=== PATIENT | female | born 1940 | race Caucasian/White ===

== ENCOUNTER 2019-03-03 10:28 | Observation (INO) | payer MEDICARE ==
[~2019-03-03] VITALS: Ht 170.2 cm; Wt 69.9 kg
[2019-03-03] MEDS ORDERED: ASPIRIN 81 MG CHEW TAB PO STA (10:47)
--- NOTE | 2019-03-03 11:55 | Diagnostic Imaging Report ---
Chest, 1 view, 03/03/2019. History: Chest tightness. Comparison: None available. Findings: The cardiomediastinal silhouette and pulmonary vasculature are within normal limits for a portable exam. There is minimal biapical pleural thickening. There is no focal consolidation or pleural effusion. There are no acute osseous or soft tissue abnormalities. Impression: No acute cardiopulmonary abnormality. Signed by: Micah Ozuna on 03/03/2019 11:52 AM
[2019-03-03 12:36] LABS: BILIRUBIN,URINE NEGATIVE (NEGATIVE); CLARITY,URINE CLEAR (CLEAR); COLOR,URINE YELLOW (YELLOW); KETONES,URINE NEGATIVE (NEGATIVE); LEUKOCYTE ESTERASE ,URINE MODERATE (NEGATIVE); NITRITE,URINE NEGATIVE (NEGATIVE); PROTEIN,URINE DIPSTICK 1+ (NEGATIVE); URINE UROBILINOGEN 0.2 mg/dL (0.2 - 1)
[2019-03-03 12:41] LABS: BASOPHILS % 0.3 % (0.0-1.0); EOSINOPHILS % 0.1 % (0.0-6.0); HEMATOCRIT 37.5 % (34.2-44.1); HEMOGLOBIN 12.2 g/dL (12.0-16.0); LYMPHOCYTES # (AUTO) 1.1 (1.0-3.2); LYMPHOCYTES % 6.8 % (18.0-39.1); MEAN CORPUSCULAR HEMOGLOBIN 29.7 pg (28-32); MEAN CORPUSCULAR HGB CONC 32.5 g/dL (31-35); MEAN CORPUSCULAR VOLUME 91.2 fL (81-99); MONOCYTES # (AUTO) 1.6 (0.2-0.8); MONOCYTES % 9.9 % (4.4-11.3); NEUTROPHILS # (AUTO) 13.2 (2.1-6.9); NEUTROPHILS % 82.1 % (38.7-80.0); PLATELET COUNT 278 x10e3/uL (140-360); RED BLOOD COUNT 4.11 x10e6/uL (3.6-5.1); RED CELL DISTRIBUTION WIDTH 15.1 % (11.7-14.4)
[2019-03-03 12:49] LABS: BACTERIA,URINE FEW /HPF; EPITHELIAL CELLS,URINE FEW /LPF
[2019-03-03 12:57] LABS: ALBUMIN 3.5 g/dL (3.5-5.0); ALBUMIN/GLOBULIN RATIO 0.9 (0.8-2.0); ANION GAP 12.5 mmol/L (8-16); CALCIUM 10.2 mg/dL (8.4-10.2); CREATININE, SERUM 0.95 mg/dL (0.57-1.11); POTASSIUM 3.5 mmol/L (3.5-5.1)
[2019-03-03 13:06] LABS: CREATINE KINASE MB 0.9 ng/mL (0-5.0)
[2019-03-03] MEDS ORDERED: CEFTRIAXONE SOD 1 GM VIAL IV ONE (13:30)
[2019-03-03 13:31] LABS: AMYLASE 33 U/L (25-125); LIPASE 4 U/L (8-78)
[2019-03-03] MEDS ORDERED: CEFTRIAXONE SOD 1 GM/NS 50 ML 50 ML IV ONE (13:45)
--- OUTSIDE RECORDS SUMMARY | 2019-03-03 14:06 | XMS REPORT ---
Author Author [facility] Address Unknown Phone Unavailable Care Team Providers Care Corn Cutter Name Role Phone BEN GOODE Unavailable Unavailable DIOGENES RODRIGEZ Unavailable Unavailable AZUL MONDRAGON Unavailable Unavailable Problems This patient has no known problems. Allergies, Adverse Reactions, Alerts This patient has no known allergies or adverse reactions. Medications This patient has no known medications. Results Test Description Test Time Test Comments Text Results Atomic Results Result Comments CHEST SINGLE (NOT PORTABLE) 2019-03-03 11:52:00 [place] [address] Patient Name: CINDY BASS MR #: [id number] : 1940 Age/Sex: 78/F Req #: [id number] Adm Physician: Ordered by: BEN GOODE DO Report #: [id number] Location: ER Room/Bed: Procedure: [id number] DX/CHEST SINGLE (NOT PORTABLE) Exam Date: 03/03/19 Exam Time: 1130 REPORT STATUS: Signed Chest, 1 view, 03/03/2019. History: Chest tightness. Comparison: None available. Findings: The cardiomediastinal silhouette and pulmonary vasculature are within normal limits for a portable exam. There is minimal biapical pleural thickening. There is no focal consolidation or pleural effusion. There are no acute osseous or soft tissue abnormalities. Impression: No acute cardiopulmonary abnormality. Signed by: Micah Ozuna on 03/03/2019 11:52 AM Dictated By: MICAH OZUNA MD 1152 Transcribed By: KAYLEEN on 03/03/19 115 COPY TO: BEN GOODE DO CT, ABDOMEN 2018-10-09 16:24:00 Reason for exam:->EMESISReason for exam:->ABDOMINAL PAINWhat is the patient's sedation requirement?->No Sedation FINAL REPORT TECHNIQUE: CT of the abdomen and pelvis WITHOUT intravenous contrast and WITHOUT oral contrast. Dose modulation, iterative reconstruction, and/or weight-based adjustment of the mA/kV was utilized to reduce the radiation dose to as low as reasonably achievable. INDICATION: 78-year-old woman with emesis, abdominal pain, left flank pain. COMPARISON: None. FINDINGS: ABSENCE OF INTRAVENOUS CONTRAST DECREASES SENSITIVITY FOR DETECTION OF FOCAL LESIONS AND VASCULAR PATHOLOGY. LOWER THORAX: Unremarkable. HEPATOBILIARY: 0.5 cm hypodensity in the right hepatic lobe is too small to characterize, but is likely a cyst. Questionable sludge and/or stones in the gallbladder. No gallbladder wall thickening or pericholecystic edema. No biliary ductal dilatation.SPLEEN: No splenomegaly.PANCREAS: No focal masses or ductal dilatation. ADRENALS: No adrenal nodules.KIDNEYS/URETERS: 0.5 cm calculus in the left ureteropelvic junction results in mild hydronephrosis. Nonobstructing 0.4- 0.5 cm right renal calculi. Subcentimeter left cortical calcification.PELVIC ORGANS/BLADDER: Prior hysterectomy. No adnexal mass. The bladder is underdistended, limiting its evaluation. PERITONEUM/RETROPERITONEUM: No free air or fluid.LYMPH NODES: No lymphadenopathy.VESSELS: Atherosclerotic vascular calcifications in the abdominal aorta and bilateral iliac arteries without aneurysm. GI TRACT: Prior sigmoid resection with anastomosis. No distention or wall thickening. Few scattered colonic diverticula. Tiny sliding hiatal hernia. BONES AND SOFT TISSUES: Osteopenia. Mild rightward convex curvature of the spine centered in the mid lumbar spine. Soft tissues are unremarkable. IMPRESSION:0.5 cm calculus in the left ureteropelvic junction resulting in mild hydronephrosis. Signed: Likhari, Gauruv MDReport Verified Date/Time: 10/09/2018 16:24:01 Reading Location: [facility] C013Y CT Body Reading Room SE 2018-10-09 13:44:00 LIPASE (BEAKER) (test mvps=266) 21 U/L 6-51 COMPREHENSIVE METABOLIC [id number] 13:44:00* Test Item Value Reference Range Comments TOTAL PROTEIN (BEAKER) (test qdab=216) 7.3 gm/dL 6.0-8.5 ALBUMIN (BEAKER) (test gsrt=2710) 4.3 g/dL 3.5-5.0 ALKALINE PHOSPHATASE (BEAKER) (test feec=680) 53 U/L 30-115 BILIRUBIN TOTAL (BEAKER) (test mmhy=029) 0.7 mg/dL 0.1-1.2 SODIUM (BEAKER) (test jias=971) 139 meq/L 135-148 POTASSIUM (BEAKER) (test vmza=024) 4.6 meq/L 3.6-5.5 CHLORIDE (BEAKER) (test pqnd=117) 103 meq/L 98-106 CO2 (BEAKER) (test qgle=682) 26 meq/L 20-29 BLOOD UREA NITROGEN (BEAKER) (test kcep=245) 15 mg/dL 10-26 CREATININE (BEAKER) (test lvlc=049) 1.03 mg/dL 0.50-1.20 GLUCOSE RANDOM (BEAKER) (test xpuh=782) 107 mg/dL 70-110 CALCIUM (BEAKER) (test qijz=656) 9.7 mg/dL 8.5-10.5 AST (SGOT) (BEAKER) (test fvhr=271) 31 U/L 5-40 ALT (SGPT) (BEAKER) (test fbsz=667) 38 U/L 5-50 EGFR (BEAKER) (test fevn=0793) 52 mL/min/1.73 sq m ESTIMATED GFR IS NOT ACCURATE CREATININE CLEARANCE IN PREDICTING GLOMERULAR FILTRATION RATE. ESTIMATED GFR IS NOT APPLICABLE FOR DIALYSIS PATIENTS. URINALYSIS W/ REFLEX URINE [id number] 13:34:00* Test Item Value Reference Range Comments COLOR (BEAKER) (test enln=540) Dark Yellow CLARITY (BEAKER) (test vypx=541) Cloudy SPECIFIC GRAVITY UA (BEAKER) (test wijd=804) 1.025 1.001-1.035 PH UA (BEAKER) (test tczf=583) 7.0 5.0-8.0 PROTEIN UA (BEAKER) (test wbmr=547) 30 mg/dL Negative GLUCOSE UA (BEAKER) (test lyvs=715) Negative Negative KETONES UA (BEAKER) (test efvc=002) Negative Negative BILIRUBIN UA (BEAKER) (test ebfh=925) Positive Negative BLOOD UA (BEAKER) (test fwam=788) Large Negative NITRITE UA (BEAKER) (test frvn=835) Negative Negative LEUKOCYTE ESTERASE UA (BEAKER) (test dbkq=142) Trace Negative UROBILINOGEN UA (BEAKER) (test hzlx=883) 1.0 mg/dL 0.2-1.0 BACTERIA (BEAKER) (test iiot=384) Few RBC UA-MANUAL (BEAKER) (test upat=9741) 20-50 /HPF WBC UA-MANUAL (BEAKER) (test blmq=9574) 5-10 /HPF SQUAMOUS EPITHELIAL MANUAL (BEAKER) (test sgee=5392) <5 /HPF SOURCE(BEAKER) (test fslm=6008) CBC W/PLT COUNT & AUTO [id number] 13:25:00* Test Item Value Reference Range Comments WHITE BLOOD CELL COUNT (BEAKER) (test kqcc=806) 11.2 K/ L 4.0-10.0 RED BLOOD CELL COUNT (BEAKER) (test robn=454) 4.34 M/ L 4.00-5.00 HEMOGLOBIN (BEAKER) (test fcoa=629) 13.0 GM/DL 12.0-15.5 HEMATOCRIT (BEAKER) (test cvoz=268) 39.5 % 36.0-46.0 MEAN CORPUSCULAR VOLUME (BEAKER) (test muww=694) 91.0 fL 82.0-99.0 MEAN CORPUSCULAR HEMOGLOBIN (BEAKER) (test oscm=136) 30.0 pg 27.0-33.0 MEAN CORPUSCULAR HEMOGLOBIN CONC (BEAKER) (test czov=733) 32.9 GM/DL 32.0-36.0 RED CELL DISTRIBUTION WIDTH (BEAKER) (test behz=321) 14.2 % 12.0-15.0 PLATELET COUNT (BEAKER) (test hgkm=631) 288 K/CU MM 150-430 MEAN PLATELET VOLUME (BEAKER) (test jpwz=255) 9.7 fL 6.0-11.5 NUCLEATED RED BLOOD CELLS (BEAKER) (test wgso=978) 0 /100 WBC 0-0 NEUTROPHILS RELATIVE PERCENT (BEAKER) (test mqkh=529) 79 % LYMPHOCYTES RELATIVE PERCENT (BEAKER) (test jwbp=279) 11 % MONOCYTES RELATIVE PERCENT (BEAKER) (test ccuc=296) 8 % EOSINOPHILS RELATIVE PERCENT (BEAKER) (test xevz=541) 1 % BASOPHILS RELATIVE PERCENT (BEAKER) (test lqpi=121) 0 % NEUTROPHILS ABSOLUTE COUNT (BEAKER) (test ojjb=516) 8.86 K/ L 1.80-8.00 LYMPHOCYTES ABSOLUTE COUNT (BEAKER) (test hadk=109) 1.28 K/ L 1.48-4.50 MONOCYTES ABSOLUTE COUNT (BEAKER) (test jhjs=044) 0.87 K/ L 0.00-1.30 EOSINOPHILS ABSOLUTE COUNT (BEAKER) (test pwda=763) 0.09 K/ L 0.00-0.50 BASOPHILS ABSOLUTE COUNT (BEAKER) (test vemi=582) 0.04 K/ L 0.00-0.20 IMMATURE GRANULOCYTES-RELATIVE PERCENT (BEAKER) (test mwnu=4460) 0 % 0-0 TISSUE [id number] 12:01:00Surgical Pathology Report Case: [id number] Authorizing Provider: Albin Mondragon, Collected: 12/04/2016 0803 Ordering Location: [facility] PERIOPER[facility]IVE Received: 12/04/2016 0812 SERVICES Pathologist: Sallie Marks MD Specimen: Parathyroid, Left Superior Parathyroid A. PARATHYROID, LEFT SUPERIOR, PARATHYROIDECTOMY: - ENLARGED HYPERCELLULAR PARATHYROID TISSUE (SEE COMMENT) - WEIGHT 0.01 GM Signing Pathologist Direct Phone Line: [phone] signed by Sallie Marks MD on 12/05/2016 at 12:01 [id number]. Left superior parathyroidReceived fresh for intraoperative consultation labeled with the patient's information and "left superior parathyroid" is a 0.01 gm, 1 x 0.8 x 0.4 cm red-brown lobular portion of tissue. The specimen is bisected along the longitudinal axis. A touch preparation is performed. The specimen is submitted entirely in cassette A1FS and A2. SH/plPARATHYROID, LEFT SUPERIOR, EXCISION: - A1FS, TP, HYPERCELLULAR PARATHYROID TISSUE - WEIGHT 0.01 GM - THESE FINDINGS ARE REPORTED TO OR-[address] MARKS/ ON DECEMBER 04, 2016 AT 8:24 A.M.The hypercellular parathyroid gland is not surrounded by a definite capsule, however there is a rim of normocellular parathyroid tissue. Clinical and radiologic correlation is required to distinguish between hyperplasia and adenoma.
[2019-03-03 14:39] LABS: INR 1.13
[2019-03-03 14:40] LABS: PARTIAL THROMBOPLASTIN TIME 36.3 seconds (23.8-35.5)
--- NOTE | 2019-03-03 14:52 | Diagnostic Imaging Report ---
Right upper quadrant abdominal ultrasound, 03/03/2019. History: Right upper quadrant pain. Comparison: None available. Discussion: Transverse and longitudinal images of the right upper quadrant of the abdomen were obtained demonstrating a liver of normal size and echogenicity measuring 13.6 cm in length. There is no evidence of a focal hepatic mass. The portal vein is patent with hepatopetal flow and is within normal limits measuring 9 mm in diameter. The biliary tree is within normal limits with the common bile duct measuring 3 mm in diameter. The gallbladder is normal without evidence of shadowing stones, wall thickening, or pericholecystic fluid. The sonographic Sparks's sign was negative. The right kidney is normal in size and echogenicity without evidence of hydronephrosis, stones, or mass and measures 10.6 cm in length. The pancreatic <body and tail> are visualized and are normal in appearance. The abdominal aorta is within normal limits. There is no evidence of free fluid. IMPRESSION: Normal right upper quadrant ultrasound. No evidence of cholelithiasis. Signed by: Micah Ozuna on 03/03/2019 2:49 PM
[2019-03-03] MEDS ORDERED: ACETAMINOPHEN 325 MG TAB PO PRN (15:15)
[2019-03-03] MEDS ORDERED: ONDANSETRON HCL INJ 2MG/ML 2ML 2 MG/ML VIAL IV PRN (15:15)
[2019-03-03] MEDS ORDERED: ACETAMINOPHEN/CODEINE 300MG - 30MG TAB PO PRN (15:30)
[2019-03-03] MEDS ORDERED: LORAZEPAM INJ 2 MG/ML VIAL IV PRN (15:30)
[2019-03-03] MEDS ORDERED: CRESTOR40 MG PO (16:44)
[2019-03-03] MEDS ORDERED: EZETIMIBE10 MG PO (16:44)
[2019-03-03] MEDS ORDERED: PANTOPRAZOLE SO40 MG PO (16:44)
[2019-03-03] MEDS ORDERED: ATENOLOL50 MG PO (16:44)
[2019-03-03] MEDS ORDERED: ENOXAPARIN SOD INJ 40 MG/0.4 ML SYR SC SCH (17:00)
[2019-03-03] MEDS ORDERED: ENOXAPARIN INJ 80 MG/0.8 ML SYR SC NR (17:30)
[2019-03-03 17:53] VITALS: BP 110/53
[2019-03-03] MEDS: METOPROLOL TARTRATE 25 MG TAB PO SCH (18:13)
--- NOTE | 2019-03-03 18:20 | NUR ---
RECEIVED REPORT FROM SIVA IN ER AWAITING FOR PT TO ARRIVE TO FLOOR
[2019-03-03 20:00] VITALS: BP 101/52
[2019-03-03 20:19] VITALS: BP 101/52
[2019-03-03] MEDS ORDERED: ATORVASTATIN 20 MG TAB PO SCH (21:00)
[2019-03-03] MEDS ORDERED: ATORVASTATIN 40 MG TAB PO SCH (21:00)
--- NOTE | 2019-03-03 23:54 | Consultation ---
DATE OF CONSULTATION: 03/03/2019 Cardiology Consultation CONSULTING PHYSICIAN: Hipolito Frazier MD, from Interventional Cardiology. REASON FOR CONSULTATION: Chest pain. HISTORY OF PRESENT ILLNESS: Helen is a 78-year-old pleasant woman with history of remote colon cancer, now in remission, hypertension, and dyslipidemia. She has family history positive coronary artery disease with her father, in his 40s from [place]. She presents with complaints of crescendo chest discomfort occurring with exertion, initially relieved by rest occurring several months prior. However, in the last three days, it has become progressively worse with minimal activity and occurring at rest and lasting minutes to hours at a time, recurrent over the last three days. EKG, shows sinus rhythm, incomplete right bundle branch block. First set of cardiac biomarkers is negative with a BNP of 122. REVIEW OF SYSTEMS: A 12-system review is negative except for as noted above. ALLERGIES: TO CIPROFLOXACIN. PAST MEDICAL HISTORY: Significant for hypertension, dyslipidemia, and colon cancer. SOCIAL HISTORY: Former smoker. No alcohol or drugs. FAMILY HISTORY: Significant for coronary artery disease. PHYSICAL EXAMINATION: VITAL SIGNS: Temperature 99 degrees, heart rate 81, respiratory rate 16, blood pressure 136/71, and O2 saturation 95%. GENERAL: In no acute distress. Alert. NECK: No JVD. CHEST: Clear to auscultation. CARDIOVASCULAR: Regular rate and rhythm. Normal S1, S2. No S3, no S4. No murmurs or rubs. ABDOMEN: Soft, nontender, and nondistended. Bowel sounds positive. EXTREMITIES: No cyanosis, clubbing, or edema. Pedal pulses and posterior tibial pulses are diminished 1+. SKIN: Dry and intact. Mucosa moist. CARDIOVASCULAR MEDICATIONS: Reviewed. LABORATORY DATA: Studies reviewed. Sodium 135, potassium 3.5, chloride 99, bicarbonate 27, BUN 11, creatinine 0.9, glucose 93. Troponin I 0.008. BNP 122. Lipase 4, amylase 33, albumin 3.5. INR 1.1, PTT 36. PT 15. ASSESSMENT: A 78-year-old woman presents with unstable angina. 1. Hypertension. 2. Dyslipidemia. RECOMMEND: 1. Obtain echocardiogram. 2. Keep on telemetry. 3. Discussed indications, alternatives, risks, and benefits for coronary angiography and possible intervention. The patient voices understanding and agrees to proceed. We will schedule likely tomorrow a.m. 4. Aspirin and statin. 5. Lovenox therapeutic dose once today. 6. Metoprolol. I thank Dr. Woodard for the opportunity to participate in the care of Ms. Bustos. MD YostV/MODL /[id number]
[2019-03-04] VITALS (8 sets, daily range): BP systolic 93–118; BP diastolic 46–60
[2019-03-04 06:14] LABS: BASOPHILS % 0.2 % (0.0-1.0); EOSINOPHILS # (AUTO) 0.1 (0.0-0.4); EOSINOPHILS % 0.5 % (0.0-6.0); HEMATOCRIT 37.1 % (34.2-44.1); HEMOGLOBIN 11.9 g/dL (12.0-16.0); LYMPHOCYTES # (AUTO) 1.4 (1.0-3.2); LYMPHOCYTES % 10.6 % (18.0-39.1); MEAN CORPUSCULAR HEMOGLOBIN 29.3 pg (28-32); MEAN CORPUSCULAR HGB CONC 32.1 g/dL (31-35); MEAN CORPUSCULAR VOLUME 91.4 fL (81-99); MONOCYTES # (AUTO) 1.4 (0.2-0.8); MONOCYTES % 11.3 % (4.4-11.3); NEUTROPHILS # (AUTO) 9.9 (2.1-6.9); PLATELET COUNT 289 x10e3/uL (140-360); RED BLOOD COUNT 4.06 x10e6/uL (3.6-5.1); RED CELL DISTRIBUTION WIDTH 15.3 % (11.7-14.4)
[2019-03-04 06:22] LABS: INR 1.1; PROTHROMBIN TIME 14.7 seconds (11.9-14.5)
[2019-03-04 06:23] LABS: PARTIAL THROMBOPLASTIN TIME 40.2 seconds (23.8-35.5)
[2019-03-04 06:28] LABS: ALANINE AMINOTRANSFERASE 12 IU/L (0-55); ALBUMIN 3.2 g/dL (3.5-5.0); ALBUMIN/GLOBULIN RATIO 0.8 (0.8-2.0); ALKALINE PHOSPHATASE 74 IU/L (40-150); ANION GAP 13.6 mmol/L (8-16); BLOOD UREA NITROGEN 12 mg/dL (7-26); BUN/CREATININE RATIO 13 (6-25); CALCIUM 10.1 mg/dL (8.4-10.2); CARBON DIOXIDE 25 mmol/L (22-29); CHLORIDE 102 mmol/L (98-107); EST GLOMERULAR FILTRATION RATE > 60 ML/MIN (60-); GLUCOSE 92 mg/dL (74-118); POTASSIUM 3.6 mmol/L (3.5-5.1); SODIUM 137 mmol/L (136-145)
[2019-03-04 06:53] LABS: CHOL/HDL RATIO 4.2 (3.0-3.6); CHOLESTEROL 169 MD/DL (0-199); HDL CHOLESTEROL 40 MG/DL (40-60); LDL CHOLESTEROL 100 MG/DL (60-130); TRIGLYCERIDES 146 MG/DL (0-149)
[2019-03-04] MEDS ORDERED: HEPARIN SOD (PORCINE) 1000 UNIT/ML 30ML ONE (07:51)
[2019-03-04] MEDS ORDERED: MIDAZOLAM HCL 2 MG/2 ML VIAL ONE (07:51)
[2019-03-04] MEDS ORDERED: VERAPAMIL HCL 2.5 MG/ML 2 ML VIAL ONE (07:51)
[2019-03-04] MEDS ORDERED: IOPAMIDOL 370 MG/ML 200 ML INFUS..BTL INJ ONE (07:52)
[2019-03-04] MEDS ORDERED: SODIUM CHLORIDE 0.9% 1000ML 1,000 ML ONE (07:52)
[2019-03-04] MEDS ORDERED: LIDOCAINE HCL 2% LOCAL 20 ML VIAL ONE (07:52)
[2019-03-04] MEDS ORDERED: NITROGLYCERIN/D5W 200 MCG/ML 250 ML ONE (07:52)
[2019-03-04] MEDS ORDERED: HEPARIN SOD/SOD CHLORIDE 2,000 ML ONE (07:52)
[2019-03-04] MEDS ORDERED: FENTANYL CITRATE/PF 100MCG/2 ML INJ ONE (07:52)
[2019-03-04] MEDS: METOPROLOL TARTRATE 25 MG TAB PO SCH (08:51)
[2019-03-04] MEDS ORDERED: ASPIRIN 81 MG CHEW TAB PO SCH (09:00)
--- NOTE | 2019-03-04 09:17 | NUR ---
BACK IN ROOM VIA BED, AA&OX3, RA, DRESSING TO R GROIN CDI, SURROUNDING TISSUE SOFT, PULSES PALPABLE BILAT LE, DENIES PAIN AT THIS TIME, REPORTS "SAME DISCOMFORT BEFORE HEART CATH", 05/06 AT THIS TIME, MD MITCHELL INTO SEE PT, DISCUSSED RESULTS WITH FAMILY AND PT, PT AWARE OF BED REST UNTIL 11AM
--- NOTE | 2019-03-04 11:36 | Progress Note ---
DATE: 03/04/2019 Cardiology Progress Note SUBJECTIVE: Helen has had no recurrent symptoms overnight. She denies any chest discomfort or shortness of breath. Cardiac catheterization was performed today and was remarkable for calcific eccentric ostial RCA 50% stenosis without catheter dampening and without evidence of thrombus. Otherwise, mild diseased throughout the rest of coronary vessels with calcifications noted [id number] throughout the extent of the aorta consistent with underlying PAD. OBJECTIVE: VITAL SIGNS: Temperature 98.5, heart rate 69, respiratory rate 18, blood pressure 103/52, and O2 saturation 97% at room air. GENERAL: In no acute distress. Alert, active, and oriented. NECK: No JVD. No carotid bruits. CHEST: Clear to auscultation. CARDIOVASCULAR: Regular rate and rhythm. Normal S1 and S2. No S3 or S4. ABDOMEN: Soft, nontender, and nondistended. Bowel sounds positive. EXTREMITIES: No cyanosis, clubbing, or edema. VASCULAR: Decreased pedal dorsalis pedis pulses 1+ bilaterally. CARDIOVASCULAR MEDICATIONS: Reviewed. 1. Atorvastatin 80 mg at bedtime. 2. Aspirin 81 mg daily. 3. Metoprolol tartrate 25 mg b.i.d. STUDIES: White blood cells 12.7, hemoglobin 11.9, and platelets 289. INR 1.1, PT 14.7, and PTT 40.2. Sodium 137, potassium 3.6, chloride 102, bicarbonate 25, BUN 12, creatinine 0.9, glucose 92, calcium 10.1, AST 19, ALT 12, and alkaline phosphatase 74. Serial cardiac biomarkers negative. Triglycerides 169, LDL 100, and HDL 40. ASSESSMENT: 1. Coronary artery disease, moderate. 2. Aortic plaque/peripheral artery disease. 3. Hypertension. 4. Dyslipidemia. 5. LVEF 55% to 60% on LV-gram today with LVEDP of 13 with no significant gradient across the aortic valve (5 mmHg). RECOMMENDATIONS: 1. Continue current cardiovascular medications. 2. Outpatient followup advised with Cardiology in 2 weeks. MD STACIA Sunshine/MIESHA /[id number]
--- NOTE | 2019-03-04 15:47 | Operative Report ---
DATE OF PROCEDURE: 03/04/2019 SURGEON: Hipolito Frazier MD PROCEDURE: Cardiac catheterization. INTELLECTUAL PROPERTY LEGAL ASSISTANT: Hipolito Frazier MD. Interventional Cardiology. PROCEDURE PERFORMED: 1. Left heart catheterization. 2. Selective coronary angiography. 3. Right common femoral artery 6-Tunisian Angio-Seal closure. PROCEDURE COMPLICATIONS: None. ESTIMATED BLOOD LOSS: Less than 15 mL. PROCEDURE SUMMARY: After consent was obtained, the patient was prepped and draped in a sterile fashion. The right femoral site was locally infiltrated with 2% lidocaine and access was obtained with micropuncture kit. A 6-Tunisian sheath was placed and 6-Tunisian catheters were used for angiography. JL4 for the left main, JR4 for the right coronary artery, and a pigtail to cross the aortic valve for hemodynamic measurements and left ventriculography. The following findings were noted. 1. LV pressure is 122/0 with end-diastolic pressure of 13. 2. Aortic pressure is 117/77. 3. LV-gram reveals preserved left ventricular systolic function with left ventricular ejection fraction 55%-60% and normal regional wall motion. 4. Significant plaque noted throughout the full extent of aorta. Heavy calcifications. 5. The left main has luminal irregularities and moderate calcifications. It gives an LAD and circumflex. 6. The LAD has luminal irregularities throughout giving diagonal and septal perforators of small caliber. 7. Circumflex has luminal irregularities and gives obtuse marginal of small to medium caliber and a left posterolateral branch of small caliber. 8. The right coronary artery is dominant. She has heavily calcified eccentric 50% stenosis at the ostial level without any evidence of dampening on 6-Tunisian catheter engagement as well as no evidence of thrombus. There is RV marginal and mid segment and a terminal RPDA and RPLV. The right coronary artery has luminal irregularities. CONCLUSION: 1. Moderate heavily calcified ostial RCA stenosis, otherwise luminal irregularities noted throughout the rest of the coronary tree and severe aortic plaque noted on exam. 2. Preserved left ventricular systolic function and LVEDP of 13 mmHg with transcatheter aortic valve gradient of 5 mmHg. Recommend medical management and close outpatient followup. Hipolito Frazier MD AFV/MODL /[id number]
[2019-03-04] MEDS ORDERED: MACRODANTIN100 MG PO (16:07)
[2019-03-04] MEDS ORDERED: ASPIR 8181 MG PO (16:07)
[2019-03-04] MEDS ORDERED: NEOMYCIN/POLYMYX/BACITR OINT 0.9 GM PKT ONE (16:31)
--- NOTE | 2019-03-04 16:39 | NUR ---
DISCHARGE INSTRUCTIONS REVIEWED WITH PT AND FAMILY, VERIFIED HOME MEDICATIONS AND INSTRUCTED NOT TO FILL SOME OF PRESCRIPTIONS PER MD ORDER THAT PT ALREADY HAS AT HOME, PT VERBALIZED UNDERSTANDING, PT STATES "FEEL WEAK", ENCOURAGED PT TO STAY , PT REFUSING AT THIS TIME, STATES "I AM FINE", VS WNL FOR PT, WHEELED OFF UNIT VIA WC FOR DISCHARGE, NO DISTRESS, FAMILY AT SIDE
--- NOTE | 2019-03-05 06:46 | Discharge Summary ---
PRIMARY CARE DOCTOR: Dr. Kaylyn Lopez. FINAL DIAGNOSIS: Chest pain. SECONDARY DIAGNOSES: 1. Urinary tract infection. 2. History of nephrolithiasis. 3. Previous colon cancer. CRISIS CLINICIAN: Dr. Hancock, Cardiology. PROCEDURE/STUDIES PERFORMED: 1. Echocardiogram, which was benign. 2. Left heart catheterization, which shows moderate coronary artery disease, aortic plaque, peripheral artery disease, but did not require a stent placement. HISTORY: Per [facility] HOSPITAL COURSE: Left heart catheterization was done, which again shows moderate disease, but did not require intervention. The patient will continue her aspirin, beta-pita, and statin. The patient does need to be follow up closely with [facility] deck hand. As far as her UTI, currently urine culture showing 10,000 to 50,000 gram-negative rods. I will go ahead and send her home on Macrobid for 3 more days. The patient received IV Rocephin here. The patient was seen and examined today. CONDITION ON DISCHARGE: Improved. DISCHARGE MEDICATIONS: Please see medication reconciliation form. MD REYNALDO Canseco/MIESHA /[id number] cc: [facility]
== END 2019-03-04 16:40 | disposition home or self-care (01) ==
LOC: ER 10:28 → ERHOLD 13:56 → MED/SURG 18:44
PROVIDERS: ADMIT Internal Medicine; ATTEND Internal Medicine
DX: I25.110 Atherosclerotic heart disease of native coronary artery with unstable angina pectoris (principal); I70.0 Atherosclerosis of aorta; I10 Essential (primary) hypertension; E78.5 Hyperlipidemia, unspecified; I73.9 Peripheral vascular disease, unspecified; Z82.49 Family history of ischemic heart disease and other diseases of the circulatory system
CPT/HCPCS: 36415 ×2; 71045; 76705; 80053 ×2; 80061; 81001; 82150; 82550; 82553; 83690; 83880; 84484 ×2; 85025 ×2; 85610 ×2; 85730 ×2; 87086; 87186; 93005; 93306; 93458; 96361; 99284; G0378 ×2; J0696; J1644; J1650; J2001; J2250; J2405; J3010; J7030; Q9967; 96360; 99152

== ENCOUNTER 2022-08-06 20:06 | Emergency (ER) | payer MEDICARE ==
[~2022-08-06] VITALS: Ht 170.2 cm; Wt 69.9 kg
[~2022-08-06 20:06] MED LIST: ASPIR 8181 MG PO; ATENOLOL50 MG PO; CRESTOR40 MG PO; EZETIMIBE10 MG PO; MACRODANTIN100 MG PO; PANTOPRAZOLE SO40 MG PO
[2022-08-06] MEDS ORDERED: KETOROLAC TROMETHAMINE 30 MG/ML VIAL IV STA (20:19)
[2022-08-06] MEDS ORDERED: DIAZEPAM INJ 5 MG/ML 2 ML IV ONE (20:30)
[2022-08-06 20:39] LABS: BASOPHILS % 0.5 % (0.0-1.0); EOSINOPHILS # (AUTO) 0.2 (0.0-0.4); EOSINOPHILS % 2.8 % (0.0-6.0); HEMOGLOBIN 12.9 g/dL (12.0-16.0); LYMPHOCYTES # (AUTO) 2.1 (1.0-3.2); LYMPHOCYTES % 33.9 % (18.0-39.1); MEAN CORPUSCULAR HEMOGLOBIN 30.2 pg (28-32); MEAN CORPUSCULAR HGB CONC 33.1 g/dL (31-35); MEAN CORPUSCULAR VOLUME 91.3 fL (81-99); MONOCYTES # (AUTO) 0.8 (0.2-0.8); MONOCYTES % 12.9 % (4.4-11.3); NEUTROPHILS % 49.7 % (38.7-80.0); PLATELET COUNT 229 x10e3/uL (140-360); RED BLOOD COUNT 4.27 x10e6/uL (3.6-5.1); RED CELL DISTRIBUTION WIDTH 13.2 % (11.7-14.4)
[2022-08-06 21:00] LABS: ALBUMIN 3.8 g/dL (3.5-5.0); ALBUMIN/GLOBULIN RATIO 1.3 (0.8-2.0); ANION GAP 15.7 mmol/L (8-16); CALCIUM 9.2 mg/dL (8.4-10.2); CREATININE, SERUM 0.93 mg/dL (0.57-1.11); POTASSIUM 3.7 mmol/L (3.5-5.1)
[2022-08-06] MEDS ORDERED: ONDANSETRON HCL INJ 2MG/ML 2ML 2 MG/ML VIAL IV STA (23:14)
[2022-08-06] MEDS ORDERED: Morphine 4mg INJECTION 4 MG/ML INJ IV ONE (23:15)
[2022-08-07] MEDS ORDERED: DIAZEPAM INJ 5 MG/ML 2 ML ONE (00:36)
[2022-08-07] MEDS ORDERED: MEDROL4 M2 PO (00:39)
[2022-08-07] MEDS ORDERED: ULTRAM 50MG50 MG PO (00:39)
[2022-08-07] MEDS ORDERED: METHOCARBAMOL750 MG PO (00:39)
[2022-08-07] MEDS ORDERED: DIAZEPAM INJ 5 MG/ML 2 ML IV ONE (00:45)
[2022-08-07 00:56] VITALS: BP 139/52
== END 2022-08-07 00:45 | disposition home or self-care (01) ==
LOC: ER 20:19
DX: S39.012A Strain of muscle, fascia and tendon of lower back, initial encounter (principal); I10 Essential (primary) hypertension; E78.5 Hyperlipidemia, unspecified; K21.9 Gastro-esophageal reflux disease without esophagitis; Z85.038 Personal history of other malignant neoplasm of large intestine
CPT/HCPCS: 36415; 72148; 80053; 85025; 99284; J1885; J2270; J2405; J3360 ×2